=== PATIENT | male | born 1960 | race Two or more races ===

== ENCOUNTER 2017-02-27 21:59 | Inpatient (IN) | payer MEDICAID ==
[~2017-02-27] VITALS: Ht 162.6 cm; Wt 75.3 kg
[2017-02-27 22:14] VITALS: BP 128/49
[2017-02-27] MEDS ORDERED: Octreotide Acetate 500 MCG in Sodium Chloride 500ML 499 ML IV SCH (22:30)
[2017-02-27] MEDS ORDERED: Pantoprazole Inj IVP ONE (22:30)
--- NOTE | 2017-02-27 22:38 | Emergency Room Report ---
History of Present Illness General Chief Complaint: Alcohol Intoxication Source: Patient, Family Member Present Illness HPI 48-year-old male, chronic alcoholic, brought in for hematemesis. Patient admits to drinking daily. Has not seen a doctor for many years. states that patient had hematemesis, 3 episodes, with passage of bright red clots. denies hx of endoscopies or colonoscopies. hasnt seen a doctor for years. currently c/o nausea. states had black stools a week ago but now normal in color. no cp/sob. fever/chills/abd pain Allergies: Coded Allergies: No Known Allergies (Unverified , 02/27/17) Patient History Past Medical History: see triage record Past Surgical History: none Pertinent Family History: none Reviewed Nursing Documentation: PMH: Agreed, PSxH: Agreed Nursing Documentation-PMH Hx Hypertension: Yes Review of Systems All Other Systems: negative except mentioned in HPI Physical Exam Vital Signs Date Time Temp Pulse Resp B/P (MAP) Pulse Ox O2 Delivery O2 Flow Rate FiO2 02/27/17 21:51 115 16 119/70 99 Room Air 02/27/17 22:14 98.0 Sp02 EP Interpretation: reviewed, normal General Appearance: alert, GCS 15, non-toxic, severe distress, other - paleand jaundiced middle aged male Head: normocephalic, atraumatic Eyes: bilateral eye normal inspection, bilateral eye PERRL, bilateral eye EOMI ENT: normal ENT inspection, normal pharynx, normal voice, moist mucus membranes Neck: normal inspection, full range of motion, supple Respiratory: normal inspection, lungs clear, normal breath sounds, no respiratory distress, no retraction, no wheezing, speaking full sentences, chest symmetrical Cardiovascular #1: regular rate, rhythm, no edema, normal capillary refill, tachycardia Cardiovascular #2: 2+ radial (R), 2+ radial (L) Gastrointestinal: normal inspection, non tender, soft, non-distended, no guarding Musculoskeletal: normal inspection, back normal, normal range of motion, non- tender Neurologic: normal inspection, alert, oriented x3, responsive, motor strength/ tone normal, sensory intact, normal gait, speech normal Psychiatric: normal inspection, judgement/insight normal, memory normal Skin: no rash, warm/dry, normal turgor, pallor, jaundice Procedures Critical Care Time Critical Care Time 65 minutes of CC time 56-year-old male with hematemesis, history of alcohol abuse Intubated patient PLAN: IV access, labs, type and screen, GI consult, transfuse, intubated for airway protection Anticipate admission to ICU CC time also includes review of labs, review of EMR, discussion with family and paperwork from SNF, d/w hospitalist CC could include dosing of pressors, additional Abx CC time does not include procedures Intubation Intubation : Consent: Verbal Intubation Method: orotracheal Tube Size (cm): 7.5 Medications: Etomidate, Rocuronium Breath Sounds after Intubation: equal Intubation Complications: no complications Post Intubation Xray: Yes Attempts: One Patient Tolerated: Well Complications: None Medical Decision Making Diagnostic Impression: Primary Impression: Hemorrhagic shock Additional Impressions: Upper gastrointestinal bleeding Alcohol abuse Severe anemia Esophageal varices ER Course 48-year-old male, hematemesis, history of alcoholic abuse DDX: Esophageal varices, gastritis, gastric ulcer, AV malformation Plan: Obtain labs, ua, type and screen, transfuse, GI consult, anticipating admission to ICU ER course: Patient has remained tachycardic about 120, blood pressure map of 65 Patient feels very nauseous, Zofran given Extensive conversation held with the patient and his family members, they are aware of patient's critical status and possibility of hemorrhage from esophageal varices given patient's history Patient intubated for airway protection and anticipated clinical course Hemoglobin noted to be 3.9, patient transfused 2 units and 1 FFP in emergency room Protonix given, octreotide drip Founding Partner aware, Dr. Corral, who will be scoping patient in the morning Postintubation patient placed on fentanyl drip Remains tachycardic 140-150, hypertensive 182/98 versed drip started repeat hgb improved to 6.9, another unit prbc transfused d/w GI, patient scoped in ED 5 bands placed xferred to ICU: Disposition: Patient is to be admitted to ICU D/W hospitalist Dr Navarro Please note that this Emergency Department Report was dictated using [employer] inspector technology software, occasionally this can lead to erroneous entry secondary to interpretation by the dictation equipment. EKG Diagnostic Results EP Interpretation: Yes Rate: normal Rhythm: Tachycardic ST Segments: No acute changes ASA given to patient: No Rhythm Strip EP Interpretation: Yes Rate: 120 Rhythm: NSR, no PVCs, no ectopy Chest X-ray CXR: Ordered: Yes 1 view Indication: Chest pain EP interpretation: Yes Interpretation: No consolidation, no effusion, no PTX, no acute cardiopulmonary disease Impression: No acute disease Chest X-ray CXR: Ordered: Yes 1 view Indication: ET tube placement EP interpretation: Yes Interpretation: No consolidation, no effusion, no PTX, no acute cardiopulmonary disease, ET tube noted to be in appropriate position above the zoe Impression: No acute disease Electronically signed by Digna Johnson MD Electronically signed by Digna Johnson MD Laboratory Tests Test 02/27/17 22:25 White Blood Count 18.5 K/UL (4.8-10.8) H Red Blood Count 1.38 M/UL (4.70-6.10) L Hemoglobin 3.9 G/DL (14.2-18.0) *L Hematocrit 12.7 % (42.0-52.0) L Mean Corpuscular Volume 92 FL (80-99) Mean Corpuscular Hemoglobin 28.4 PG (27.0-31.0) Mean Corpuscular Hemoglobin Concent 30.9 G/DL (32.0-36.0) L Red Cell Distribution Width 16.4 % (11.6-14.8) H Platelet Count 80 K/UL (150-450) L Mean Platelet Volume 7.5 FL (6.5-10.1) Neutrophils (%) (Auto) % (45.0-75.0) Lymphocytes (%) (Auto) % (20.0-45.0) Monocytes (%) (Auto) % (1.0-10.0) Eosinophils (%) (Auto) % (0.0-3.0) Basophils (%) (Auto) % (0.0-2.0) Differential Total Cells Counted 100 Neutrophils % (Manual) 87 % (45-75) H Lymphocytes % (Manual) 4 % (20-45) L Monocytes % (Manual) 5 % (1-10) Eosinophils % (Manual) 0 % (0-3) Basophils % (Manual) 0 % (0-2) Band Neutrophils 4 % (0-8) Platelet Estimate Decreased L Platelet Morphology Normal Red Blood Cell Morphology Normal Prothrombin Time 17.0 SEC (9.30-11.50) H Prothrombin Time INR 1.6 (0.9-1.1) H PTT 31 SEC (23-33) Sodium Level 140 MMOL/L (136-145) Potassium Level 3.8 MMOL/L (3.5-5.1) Chloride Level 104 MMOL/L (98-107) Carbon Dioxide Level 24 MMOL/L (21-32) Anion Gap 12 mmol/L (5-15) Blood Urea Nitrogen 20 mg/dL (7-18) H Creatinine 1.0 MG/DL (0.55-1.30) Estimate Glomerular Filtration Rate > 60 mL/min (>60) Glucose Level 149 MG/DL (74-106) H Calcium Level 8.2 MG/DL (8.5-10.1) L Total Bilirubin 1.6 MG/DL (0.2-1.0) H Direct Bilirubin 0.8 MG/DL (0.0-0.3) H Aspartate Amino Transferase (AST) 249 U/L (15-37) H Alanine Aminotransferase (ALT) 132 U/L (12-78) H Alkaline Phosphatase 142 U/L (46-116) H Total Creatine Kinase 124 U/L (26-308) Creatine Kinase MB 1.1 NG/ML (0.0-3.6) Creatine Kinase MB Relative Index 0.8 Troponin I 0.023 ng/mL (0.000-0.056) Pro-B-Type Natriuretic Peptide 159 pg/mL (0-125) H Total Protein 6.3 G/DL (6.4-8.2) L Albumin 2.2 G/DL (3.4-5.0) L Globulin 4.1 g/dL Albumin/Globulin Ratio 0.5 (1.0-2.7) L Lipase 320 U/L (73-393) Serum Alcohol < 3 mg/dL Last Vital Signs Date Time Temp Pulse Resp B/P (MAP) Pulse Ox O2 Delivery O2 Flow Rate FiO2 02/27/17 22:14 98.0 115 16 128/49 100 Room Air Scripts No Active Prescriptions or Reported Meds Digna Johnson M.D. Feb 27, 2017 22:38
[2017-02-27 22:49] LABS: HEMATOCRIT 12.7 % (42.0-52.0); MEAN CORPUSCULAR VOLUME 92 FL (80-99); PLATELET COUNT 80 K/UL (150-450); RED BLOOD COUNT 1.38 M/UL (4.70-6.10); RED CELL DISTRIBUTION WIDTH 16.4 % (11.6-14.8); WHITE BLOOD COUNT 18.5 K/UL (4.8-10.8)
[2017-02-27 22:57] LABS: INR 1.6 (0.9-1.1)
[2017-02-27 23:01] LABS: ALANINE AMINOTRANSFERASE 132 U/L (12-78); ALBUMIN 2.2 G/DL (3.4-5.0); ALBUMIN/GLOBULIN RATIO 0.5 (1.0-2.7); ALKALINE PHOSPHATASE 142 U/L (46-116); ANION GAP 12 mmol/L (5-15); ASPARTATE AMINO TRANSFERASE 249 U/L (15-37); BILIRUBIN,TOTAL 1.6 MG/DL (0.2-1.0); BLOOD UREA NITROGEN 20 mg/dL (7-18); CALCIUM 8.2 MG/DL (8.5-10.1); CARBON DIOXIDE 24 MMOL/L (21-32); CHLORIDE 104 MMOL/L (98-107); POTASSIUM 3.8 MMOL/L (3.5-5.1); SODIUM 140 MMOL/L (136-145)
[2017-02-27 23:04] LABS: HEMOGLOBIN 3.9 G/DL (14.2-18.0)
[2017-02-27 23:20] LABS: BILIRUBIN,DIRECT 0.8 MG/DL (0.0-0.3); CKMB 1.1 NG/ML (0.0-3.6); CREATINE KINASE 124 U/L (26-308)
[2017-02-28] VITALS (26 sets, daily range): BP systolic 85–182; BP diastolic 43–98
[2017-02-28] MEDS ORDERED: Etomidate 40mg/20ml Inj IV ONE (01:15)
[2017-02-28] MEDS ORDERED: Zemuron 50mg/5ml Inj IV ONE (01:15)
[2017-02-28] MEDS ORDERED: Hydromorphone 0.5mg/0.5ml inj ONE (01:47)
[2017-02-28] MEDS ORDERED: Hydromorphone 0.5mg/0.5ml inj IVP ONE (02:00)
[2017-02-28] MEDS ORDERED: Midazolam for drip 50 MG in NS 90 ML IV ONE (02:00)
[2017-02-28] MEDS ORDERED: fentaNYL 100 mcg/2 mL IV ONE ×2 (02:12)
[2017-02-28] MEDS ORDERED: fentaNYL Citrate 1000 MCG in NS 100ml IV SCH (03:15)
[2017-02-28] MEDS ORDERED: Midazolam 2mg/2ml Inj IVP ONE ×2 (04:00→07:00)
[2017-02-28] MEDS ORDERED: Midazolam/D5W 100ml 100 ML IVPB ONE ×2 (04:02→04:30)
[2017-02-28] MEDS ORDERED: MIDAZOLAM FOR DRIP IV ONE ×2 (04:15→04:30)
[2017-02-28] MEDS ORDERED: DEXTROSE IV ONE ×2 (04:15→04:30)
[2017-02-28] MEDS ORDERED: LACTATED RINGER S IV ONE (04:15)
[2017-02-28 04:39] LABS: HEMATOCRIT 21.3 % (42.0-52.0); MEAN CORPUSCULAR VOLUME 92 FL (80-99); PLATELET COUNT 105 K/UL (150-450); RED BLOOD COUNT 2.33 M/UL (4.70-6.10); RED CELL DISTRIBUTION WIDTH 14.2 % (11.6-14.8)
[2017-02-28 04:47] LABS: HEMOGLOBIN 6.9 G/DL (14.2-18.0); WHITE BLOOD COUNT 24.2 K/UL (4.8-10.8)
[2017-02-28 04:51] LABS: ALANINE AMINOTRANSFERASE 145 U/L (12-78); ALBUMIN 2.5 G/DL (3.4-5.0); ALBUMIN/GLOBULIN RATIO 0.6 (1.0-2.7); ALKALINE PHOSPHATASE 148 U/L (46-116); ANION GAP 10 mmol/L (5-15); ASPARTATE AMINO TRANSFERASE 249 U/L (15-37); BILIRUBIN,TOTAL 2.6 MG/DL (0.2-1.0); BLOOD UREA NITROGEN 24 mg/dL (7-18); CALCIUM 8.1 MG/DL (8.5-10.1); CARBON DIOXIDE 27 MMOL/L (21-32); CHLORIDE 104 MMOL/L (98-107); CREATININE 1.2 MG/DL (0.55-1.30); SODIUM 141 MMOL/L (136-145)
[2017-02-28 05:00] LABS: BILIRUBIN,DIRECT 1.1 MG/DL (0.0-0.3)
[2017-02-28] MEDS ORDERED: cefTRIAXone 1 GM in D5W 55 ML IVPB ONE (05:15)
--- NOTE | 2017-02-28 06:21 | Anethesia Preoperative Eval ---
Anesthesia Pre-op PMH/ROS General Date of Evaluation: Feb 28, 2017 Time of Evaluation: 06:18 Anesthesiologist: ijeoma ASA Score: ASA 3 Mallampati Score Class I : Soft palate, uvula, fauces, pillars visible Class II: Soft palate, uvula, fauces visible Class III: Soft palate, base of uvula visible Class IV: Only hard plate visible Mallampati Classification: Class II Surgeon: malcolm Diagnosis: ugib Surgical Procedure: egd Anesthesia History: none Social History: alcohol use Family History: no anesthesia problems Allergies: Coded Allergies: No Known Allergies (Unverified , 02/27/17) Medications: see eMAR Past Medical History Cardiovascular: Reports: HTN Hematology/Immune: Reports: anemia Anesthesia Pre-op Phys. Exam Physician Exam Last Vital Signs Date Time Temp Pulse Resp B/P (MAP) Pulse Ox O2 Delivery O2 Flow Rate FiO2 02/28/17 05:25 109 17 40 02/28/17 04:30 98.8 133/72 100 Endotracheal Tube Constitutional: NAD Neurologic: CN 2-12 intact Cardiovascular: other - tachycardia Respiratory: other - intubated, fio2 0.4 Gastrointestinal: other - distended benign +bs Airway Exam Mallampati Score: Class II MO: limited - intubated Neck: supple TMD: orally intubated ROM: limited Anesthesia Pre-op A/P Labs Hematology Test 02/27/17 22:25 02/28/17 04:25 White Blood Count 18.5 K/UL (4.8-10.8) H 24.2 K/UL (4.8-10.8) *H Red Blood Count 1.38 M/UL (4.70-6.10) L 2.33 M/UL (4.70-6.10) L Hemoglobin 3.9 G/DL (14.2-18.0) *L 6.9 G/DL (14.2-18.0) Hematocrit 12.7 % (42.0-52.0) L 21.3 % (42.0-52.0) #L Mean Corpuscular Volume 92 FL (80-99) 92 FL (80-99) Mean Corpuscular Hemoglobin 28.4 PG (27.0-31.0) 29.6 PG (27.0-31.0) Mean Corpuscular Hemoglobin Concent 30.9 G/DL (32.0-36.0) L 32.3 G/DL (32.0-36.0) Red Cell Distribution Width 16.4 % (11.6-14.8) H 14.2 % (11.6-14.8) Platelet Count 80 K/UL (150-450) L 105 K/UL (150-450) L Mean Platelet Volume 7.5 FL (6.5-10.1) 7.3 FL (6.5-10.1) Neutrophils (%) (Auto) % (45.0-75.0) % (45.0-75.0) Lymphocytes (%) (Auto) % (20.0-45.0) % (20.0-45.0) Monocytes (%) (Auto) % (1.0-10.0) % (1.0-10.0) Eosinophils (%) (Auto) % (0.0-3.0) % (0.0-3.0) Basophils (%) (Auto) % (0.0-2.0) % (0.0-2.0) Differential Total Cells Counted 100 Neutrophils % (Manual) 87 % (45-75) H Pending Lymphocytes % (Manual) 4 % (20-45) L Pending Monocytes % (Manual) 5 % (1-10) Eosinophils % (Manual) 0 % (0-3) Basophils % (Manual) 0 % (0-2) Band Neutrophils 4 % (0-8) Platelet Estimate Decreased L Pending Platelet Morphology Normal Pending Red Blood Cell Morphology Normal Coagulation Test 02/27/17 22:25 Prothrombin Time 17.0 SEC (9.30-11.50) H Prothromb Time International Ratio 1.6 (0.9-1.1) H Activated Partial Thromboplast Time 31 SEC (23-33) Chemistry Test 02/27/17 22:25 02/28/17 04:25 Sodium Level 140 MMOL/L (136-145) 141 MMOL/L (136-145) Potassium Level 3.8 MMOL/L (3.5-5.1) 4.0 MMOL/L (3.5-5.1) Chloride Level 104 MMOL/L (98-107) 104 MMOL/L (98-107) Carbon Dioxide Level 24 MMOL/L (21-32) 27 MMOL/L (21-32) Anion Gap 12 mmol/L (5-15) 10 mmol/L (5-15) Blood Urea Nitrogen 20 mg/dL (7-18) H 24 mg/dL (7-18) H Creatinine 1.0 MG/DL (0.55-1.30) 1.2 MG/DL (0.55-1.30) Estimat Glomerular Filtration Rate > 60 mL/min (>60) > 60 mL/min (>60) Glucose Level 149 MG/DL (74-106) H 208 MG/DL (74-106) H Calcium Level 8.2 MG/DL (8.5-10.1) L 8.1 MG/DL (8.5-10.1) L Total Bilirubin 1.6 MG/DL (0.2-1.0) H 2.6 MG/DL (0.2-1.0) H Direct Bilirubin 0.8 MG/DL (0.0-0.3) H 1.1 MG/DL (0.0-0.3) H Aspartate Amino Transf (AST/SGOT) 249 U/L (15-37) H 249 U/L (15-37) H Alanine Aminotransferase (ALT/SGPT) 132 U/L (12-78) H 145 U/L (12-78) H Alkaline Phosphatase 142 U/L (46-116) H 148 U/L (46-116) H Total Creatine Kinase 124 U/L (26-308) Creatine Kinase MB 1.1 NG/ML (0.0-3.6) Creatine Kinase MB Relative Index 0.8 Troponin I 0.023 ng/mL (0.000-0.056) Pro-B-Type Natriuretic Peptide 159 pg/mL (0-125) H Total Protein 6.3 G/DL (6.4-8.2) L 6.7 G/DL (6.4-8.2) Albumin 2.2 G/DL (3.4-5.0) L 2.5 G/DL (3.4-5.0) L Globulin 4.1 g/dL 4.2 g/dL Albumin/Globulin Ratio 0.5 (1.0-2.7) L 0.6 (1.0-2.7) L Lipase 320 U/L (73-393) Studies Pre-op Studies: EKG - sinus tacycardia Risk Assessment & Plan Assessment: asa3 Plan: mac Status Change Before Surgery: No Pre-Antibiotics Drug: na MARILYN WALLS Feb 28, 2017 06:21
[2017-02-28] MEDS ORDERED: Ketamine HCl 100mg syr IV ONE (06:45)
--- NOTE | 2017-02-28 07:39 | Pre-Procedure Note/Attestation ---
Pre-Procedure Note/Attestation Complete Prior to Procedure Planned Procedure: not applicable Procedure Narrative: EGD with possible biopsy, polypectomy, hemostasis and banding Indications for Procedure Pre-Operative Diagnosis: UGIB Attestation I attest that I discussed the nature of the procedure; its benefits; risks and complications; and alternatives (and the risks and benefits of such alternatives ), prior to the procedure, with the patient (or the patient's legal order entry representative). I attest that, if there was a reasonable possibility of needing a blood transfusion, the patient (or the patient's legal order entry representative) was given the [facility] standardized written summary, pursuant to the Darwin Darius Blood Safety Act ([place] Health and Safety Code # 1645, as amended). I attest that I re-evaluated the patient just prior to the surgery and that there has been no change in the patient's H&P, except as documented below: MITCHELL GUERRA Feb 28, 2017 07:39
--- NOTE | 2017-02-28 07:39 | Pre-Procedure Note/Attestation ---
Pre-Procedure Note/Attestation Complete Prior to Procedure Planned Procedure: not applicable Procedure Narrative: EGD with possible biopsy, polypectomy, hemostasis and banding Indications for Procedure Pre-Operative Diagnosis: UGIB Attestation I attest that I discussed the nature of the procedure; its benefits; risks and complications; and alternatives (and the risks and benefits of such alternatives ), prior to the procedure, with the patient (or the patient's legal lifeline representatives). I attest that, if there was a reasonable possibility of needing a blood transfusion, the patient (or the patient's legal lifeline representatives) was given the [facility] standardized written summary, pursuant to the Darwin Darius Blood Safety Act ([place] Health and Safety Code # 1645, as amended). I attest that I re-evaluated the patient just prior to the surgery and that there has been no change in the patient's H&P, except as documented below: MITCHELL GUERRA Feb 28, 2017 07:39
--- NOTE | 2017-02-28 07:39 | Pre-Procedure Note/Attestation ---
Pre-Procedure Note/Attestation Complete Prior to Procedure Planned Procedure: not applicable Procedure Narrative: EGD with possible biopsy, polypectomy, hemostasis and banding Indications for Procedure Pre-Operative Diagnosis: UGIB Attestation I attest that I discussed the nature of the procedure; its benefits; risks and complications; and alternatives (and the risks and benefits of such alternatives ), prior to the procedure, with the patient (or the patient's legal senior sales representative). I attest that, if there was a reasonable possibility of needing a blood transfusion, the patient (or the patient's legal senior sales representative) was given the [facility] standardized written summary, pursuant to the Darwin Darius Blood Safety Act ([place] Health and Safety Code # 1645, as amended). I attest that I re-evaluated the patient just prior to the surgery and that there has been no change in the patient's H&P, except as documented below: MITCHELL GUERRA Feb 28, 2017 07:39
--- NOTE | 2017-02-28 07:42 | General Progress Note ---
Assessment/Plan Assessment/Plan Assessment - EtOH abuse - EtOH cirrhosis - EtOH hepatitis - UGIB - Coagulopathy - AMS/agitation Recommendation - NPO - IVF - PPI - Sandostatin - serial CBC - transfuse - EGD Post Procedure - Moderate to severe esophageal varicies --> banded x 5 - Keep NPO. No NGT. Subjective Allergies: Coded Allergies: No Known Allergies (Unverified , 02/27/17) Objective Last 24 Hour Vital Signs Date Time Temp Pulse Resp B/P (MAP) Pulse Ox O2 Delivery O2 Flow Rate FiO2 02/28/17 07:09 115 28 40 02/28/17 06:30 98.2 107 14 93/60 100 Endotracheal Tube 40 02/28/17 05:30 106 17 96/56 100 Endotracheal Tube 40 02/28/17 05:25 109 17 40 02/28/17 05:00 40 02/28/17 04:35 28 02/28/17 04:31 22 02/28/17 04:31 22 02/28/17 04:30 98.8 126 24 133/72 100 Endotracheal Tube 50 02/28/17 04:25 22 02/28/17 04:20 24 02/28/17 04:15 25 02/28/17 04:10 24 02/28/17 04:05 26 02/28/17 04:00 24 02/28/17 03:50 24 02/28/17 03:45 24 02/28/17 03:40 26 02/28/17 03:35 24 02/28/17 03:30 100.6 148 23 169/98 100 Endotracheal Tube 50 02/28/17 03:30 24 02/28/17 03:25 23 02/28/17 03:19 28 02/28/17 03:15 144 23 50 02/28/17 02:30 99.9 154 22 182/98 100 Endotracheal Tube 50 02/28/17 02:26 99.9 156 22 02/28/17 01:42 132 20 50 02/28/17 01:41 132 20 Mechanical Ventilator 50 02/28/17 01:24 50 02/28/17 01:22 133 21 143/73 95 Room Air 02/28/17 00:25 99.2 118 25 02/28/17 00:22 98.5 121 26 117/50 100 Room Air 02/28/17 00:10 98.5 121 26 02/27/17 22:14 98.0 115 16 128/49 100 Room Air 02/27/17 21:51 115 16 119/70 99 Room Air Laboratory Tests 02/27/17 22:25: White Blood Count 18.5H, Red Blood Count 1.38L, Hemoglobin 3.9*L, Hematocrit 12.7L, Mean Corpuscular Volume 92, Mean Corpuscular Hemoglobin 28.4, Mean Corpuscular Hemoglobin Concent 30.9L, Red Cell Distribution Width 16.4H, Platelet Count 80L, Mean Platelet Volume 7.5, Neutrophils (%) (Auto) , Lymphocytes (%) (Auto) , Monocytes (%) (Auto) , Eosinophils (%) (Auto) , Basophils (%) (Auto) , Differential Total Cells Counted 100, Neutrophils % ( Manual) 87H, Lymphocytes % (Manual) 4L, Monocytes % (Manual) 5, Eosinophils % ( Manual) 0, Basophils % (Manual) 0, Band Neutrophils 4, Platelet Estimate DecreasedL, Platelet Morphology Normal, Red Blood Cell Morphology Normal, Prothrombin Time 17.0H, Prothromb Time International Ratio 1.6H, Activated Partial Thromboplast Time 31, Sodium Level 140, Potassium Level 3.8, Chloride Level 104, Carbon Dioxide Level 24, Anion Gap 12, Blood Urea Nitrogen 20H, Creatinine 1.0, Estimat Glomerular Filtration Rate > 60, Glucose Level 149H, Calcium Level 8.2L, Total Bilirubin 1.6H, Direct Bilirubin 0.8H, Aspartate Amino Transf (AST/SGOT) 249H, Alanine Aminotransferase (ALT/SGPT) 132H, Alkaline Phosphatase 142H, Total Creatine Kinase 124, Creatine Kinase MB 1.1, Creatine Kinase MB Relative Index 0.8, Troponin I 0.023, Pro-B-Type Natriuretic Peptide 159H, Total Protein 6.3L, Albumin 2.2L, Globulin 4.1, Albumin/Globulin Ratio 0.5L, Lipase 320, Serum Alcohol < 3 02/28/17 03:18: Arterial Blood pH 7.351, Arterial Blood Partial Pressure CO2 46.0H, Arterial Blood Partial Pressure O2 154.5H, Arterial Blood HCO3 24.9, Arterial Blood Oxygen Saturation 98.6H, Arterial Blood Base Excess -0.7, Thanh Test Positive 02/28/17 04:25: White Blood Count 24.2*H, Red Blood Count 2.33L, Hemoglobin 6.9#*L, Hematocrit 21.3#L, Mean Corpuscular Volume 92, Mean Corpuscular Hemoglobin 29.6, Mean Corpuscular Hemoglobin Concent 32.3, Red Cell Distribution Width 14.2, Platelet Count 105L, Mean Platelet Volume 7.3, Neutrophils (%) (Auto) , Lymphocytes (%) ( Auto) , Monocytes (%) (Auto) , Eosinophils (%) (Auto) , Basophils (%) (Auto) , Neutrophils % (Manual) [Pending], Lymphocytes % (Manual) [Pending], Platelet Estimate [Pending], Platelet Morphology [Pending], Sodium Level 141, Potassium Level 4.0, Chloride Level 104, Carbon Dioxide Level 27, Anion Gap 10, Blood Urea Nitrogen 24H, Creatinine 1.2, Estimat Glomerular Filtration Rate > 60, Glucose Level 208H, Calcium Level 8.1L, Total Bilirubin 2.6H, Direct Bilirubin 1.1H, Aspartate Amino Transf (AST/SGOT) 249H, Alanine Aminotransferase (ALT/SGPT ) 145H, Alkaline Phosphatase 148H, Total Protein 6.7, Albumin 2.5L, Globulin 4.2 , Albumin/Globulin Ratio 0.6L Height (Feet): 5 Height (Inches): 4.00 Weight (Pounds): 155 MITCHELL GUERRA Feb 28, 2017 07:42
--- NOTE | 2017-02-28 07:44 | Endoscopy Procedure Note ---
Endoscopy Procedure Note Indication for Procedure: UGIB Operative Findings/Diagnosis: Esophageal varicies - banded Specimen: none Pt Tolerated Procedure Well: Yes Estimated Blood Loss: minimal Anesthesiologist: Leonardo Anesthesia: MAC Medication Given: see anesthesia record Band Ligator: x5 Implant(s) used?: No 50 yrs or older w/o bx or poly: Not Applicable 10yrs. F/U not recommended: Not Applicable If not recommended, why?: MITCHELL GUERRA Feb 28, 2017 07:44
--- NOTE | 2017-02-28 07:46 | Brief Operative Note ---
Immediate Post Operative Note Operative Note Chief Complaint: UGIB Pre-op Diagnosis: UGIB Procedure: EGD/EBL Post-op Diagnosis: Esophageal varcies Surgeon: malcolm Anesthesiologist: Cliff Cohn Anesthesia: MAC Specimen: none Complications: none Condition: stable Fluids: see ER notes Estimated Blood Loss: minimal Drains: none Implant(s) used?: No MITCHELL GUERRA Feb 28, 2017 07:46
--- NOTE | 2017-02-28 07:57 | Immediate Post-Op Evaluation ---
Immediate Post-Op Evalulation Immediate Post-Op Evalulation Procedure: egd Date of Evaluation: Feb 28, 2017 Time of Evaluation: 07:55 Blood Products: pRBCs Estimated Blood Loss: negligible Blood Pressure Systolic: 92 Blood Pressure Diastolic: 64 Pulse Rate: 117 Respiratory Rate: 16 O2 Sat by Pulse Oximetry: 100 Pain Score (1-10): 0 Nausea: No Vomiting: No Patient Status: awake, reacts, ventilated Hydration Status: adequate Drug: MARILYN Bassett Feb 28, 2017 07:57
--- NOTE | 2017-02-28 08:00 | 48 Hour Post Anesthesia Eval ---
Post Anesthesia Evaluation Procedure: egd Date of Evaluation: Feb 28, 2017 Time of Evaluation: 08:44 Blood Pressure Systolic: 90 0: 63 Pulse Rate: 111 Respiratory Rate: 16 Temperature (Fahrenheit): 99.3 O2 Sat by Pulse Oximetry: 100 Airway: patent Nausea: No Vomiting: No Pain Intensity: 0 Hydration Status: adequate Cardiopulmonary Status: stable, sinus tachycardia with occ pvc Mental Status/LOC: patient returned to baseline Post-Anesthesia Complications: none Follow-up care needed: N/A MARILYN WALLS Feb 28, 2017 08:00
[2017-02-28] MEDS ORDERED: LORazepam Inj 2mg/ml 1ml IV PRN (09:00)
[2017-02-28] MEDS: Pantoprazole Inj IVP SCH ×2 (10:16→20:49)
--- NOTE | 2017-02-28 10:18 | Diagnostic Imaging Report ---
Indication: PAIN Technique: One view of the chest Comparison: none Findings: The heart is upper limits normal in size. Lungs and pleural spaces are clear. There is mild degenerative thoracic spondylosis Impression: No acute process This agrees with the preliminary interpretation provided by the emergency room physician
--- NOTE | 2017-02-28 10:36 | Diagnostic Imaging Report ---
Indication: Post intubation Technique: One view of the chest Comparison: 02/27/2017 Findings: Patient is rotated to the left. Interim endotracheal intubation, endotracheal tube tip projecting approximately 6 cm above the zoe. The heart is borderline enlarged. There is perihilar interstitial prominence and central bronchial wall thickening, but no definite acute infiltrates, effusions, or congestion. Impression: Satisfactory endotracheal intubation No definite acute process This agrees with the preliminary interpretation provided by the emergency room physician
[2017-02-28] MEDS: Octreotide Acetate 500 MCG in Sodium Chloride 500ML 499 ML IV SCH ×2 (10:38→20:49)
[2017-02-28 11:26] LABS: HEMATOCRIT 23.9 % (42.0-52.0); HEMOGLOBIN 7.9 G/DL (14.2-18.0); MEAN CORPUSCULAR VOLUME 91 FL (80-99); PLATELET COUNT 82 K/UL (150-450); RED BLOOD COUNT 2.62 M/UL (4.70-6.10); RED CELL DISTRIBUTION WIDTH 13.1 % (11.6-14.8); WHITE BLOOD COUNT 21.6 K/UL (4.8-10.8)
[2017-02-28 11:52] LABS: ALANINE AMINOTRANSFERASE 132 U/L (12-78); ALBUMIN 2.3 G/DL (3.4-5.0); ALBUMIN/GLOBULIN RATIO 0.6 (1.0-2.7); ALKALINE PHOSPHATASE 133 U/L (46-116); ANION GAP 8 mmol/L (5-15); ASPARTATE AMINO TRANSFERASE 210 U/L (15-37); BILIRUBIN,TOTAL 2.5 MG/DL (0.2-1.0); BLOOD UREA NITROGEN 25 mg/dL (7-18); CARBON DIOXIDE 28 MMOL/L (21-32); CHLORIDE 106 MMOL/L (98-107); CREATININE 1.1 MG/DL (0.55-1.30); POTASSIUM 3.9 MMOL/L (3.5-5.1); SODIUM 142 MMOL/L (136-145)
[2017-02-28 12:06] LABS: BILIRUBIN,DIRECT 1.2 MG/DL (0.0-0.3)
[2017-02-28] MEDS: Morphine Sulfate 4mg/ml Inj IV PRN ×2 (15:48→22:04)
--- NOTE | 2017-02-28 21:30 | History and Physical Report ---
DATE OF ADMISSION: 02/28/2017 HISTORY OF PRESENT ILLNESS: This is a middle-aged male, who was brought to the hospital last night by his complaining that the patient has been having hematemesis. The patient was seen and worked up in the emergency room. He was found to have significant upper GI bleed. He was intubated. He subsequently also underwent upper GI endoscopy by Dr. Corral, which showed that he had esophageal varices, these were banded. The patient is now seen in the ICU. It was also noted that he had significant anemia and he has been transfused also in the process. PAST MEDICAL HISTORY: Otherwise unremarkable. There is a history of alcohol use and liver cirrhosis. PAST SURGICAL HISTORY: None known. HOME MEDICATIONS: None known. ALLERGIES: None known. SOCIAL HISTORY: Lives at home with family. PHYSICAL EXAMINATION: GENERAL: Reveals a 56-year-old male. At this time, he is intubated. VITAL SIGNS: Blood pressure is 90/60, heart rate 105, respirations are 22, temperature 99.1 degrees Fahrenheit. HEENT: Unremarkable. CHEST: Decreased breath sounds bilaterally. ABDOMEN: Soft. EXTREMITIES: There is no appreciable edema. LABORATORY DATA: Lab testing shows white count 72208, hemoglobin after transfusion 6.9, platelet counts are decreased to 105,000. Chemistries notable for a bilirubin of 2.6. AST and ALT elevated. Albumin is 2.5. Creatinine 1.2. ABG, pH 7.35, pCO2 46, pO2 154. Coags, INR 1.6. Alcohol level less than 3. IMPRESSION: 1. Upper gastrointestinal bleed. 2. Esophageal varices. 3. Liver cirrhosis. 4. Alcohol abuse. 5. Hypoalbuminemia. 6. Malnutrition. 7. Thrombocytopenia. 8. Transaminitis. 9. Anemia. 10. Leukocytosis. 11. Respiratory failure. 12. Hypotension. DISCUSSION: Admitted to ICU. The patient is critically ill. He will need to be started on Protonix infusion versus IV pushes. He may also benefit from octreotide. We will defer to Gastroenterology. Empiric antibiotics will be started as well. IV fluids will to be given. The patient may require further transfusions. At this time, he is a Full Code. SCDs. We will follow carefully. Discussed with Dr. Darian Mina in the ER. Rene Frausto M.D. DR: Susanna JOB#: [id number] CC:
[2017-02-28 21:49] LABS: HEMATOCRIT 21.3 % (42.0-52.0); HEMOGLOBIN 7.2 G/DL (14.2-18.0); MEAN CORPUSCULAR VOLUME 91 FL (80-99); PLATELET COUNT 70 K/UL (150-450); RED BLOOD COUNT 2.35 M/UL (4.70-6.10); RED CELL DISTRIBUTION WIDTH 13.8 % (11.6-14.8); WHITE BLOOD COUNT 16.4 K/UL (4.8-10.8)
[2017-02-28] MEDS: LORazepam Inj 2mg/ml 1ml IV PRN (22:34)
[2017-03-01] VITALS (24 sets, daily range): BP systolic 90–184; BP diastolic 43–81
[2017-03-01] MEDS: LORazepam Inj 2mg/ml 1ml IV PRN ×7 (00:53→23:03)
[2017-03-01] MEDS: Morphine Sulfate 4mg/ml Inj IV PRN ×3 (02:03→13:49)
[2017-03-01 05:12] LABS: INR 1.6 (0.9-1.1)
[2017-03-01 05:15] LABS: HEMATOCRIT 20.5 % (42.0-52.0); MEAN CORPUSCULAR VOLUME 91 FL (80-99); PLATELET COUNT 73 K/UL (150-450); RED BLOOD COUNT 2.27 M/UL (4.70-6.10); RED CELL DISTRIBUTION WIDTH 14.1 % (11.6-14.8); WHITE BLOOD COUNT 15.7 K/UL (4.8-10.8)
[2017-03-01 05:16] LABS: ALANINE AMINOTRANSFERASE 116 U/L (12-78); ALBUMIN/GLOBULIN RATIO 0.6 (1.0-2.7); ALKALINE PHOSPHATASE 109 U/L (46-116); AMMONIA 75 umol/L (11.2-31.7); ANION GAP 7 mmol/L (5-15); ASPARTATE AMINO TRANSFERASE 158 U/L (15-37); BILIRUBIN,TOTAL 2.1 MG/DL (0.2-1.0); BLOOD UREA NITROGEN 16 mg/dL (7-18); CALCIUM 7.4 MG/DL (8.5-10.1); CARBON DIOXIDE 27 MMOL/L (21-32); CHLORIDE 109 MMOL/L (98-107); CREATININE 0.8 MG/DL (0.55-1.30); POTASSIUM 3.7 MMOL/L (3.5-5.1); SODIUM 142 MMOL/L (136-145)
[2017-03-01 05:18] LABS: HEMOGLOBIN 6.8 G/DL (14.2-18.0)
[2017-03-01 05:41] LABS: BILIRUBIN,DIRECT 1.1 MG/DL (0.0-0.3)
[2017-03-01] MEDS: Octreotide Acetate 500 MCG in Sodium Chloride 500ML 499 ML IV SCH ×2 (06:05→16:33)
--- NOTE | 2017-03-01 08:46 | Pulmonology Progress Note ---
Assessment/Plan Assessment/Plan 1. Upper gastrointestinal bleed. 2. Esophageal varices. 3. Liver cirrhosis. 4. Alcohol abuse. 5. Hypoalbuminemia. 6. Malnutrition. 7. Thrombocytopenia. 8. Transaminitis. 9. Anemia. 10. Leukocytosis. 11. Respiratory failure. 12. Hypotension. 13. Encephalopathy/agitation DISCUSSION: The patient is critically ill. He is on octreotide/protonoix Further transfusions as necessary Empiric antibiotics IV fluids will to be given. Full Code. SCDs. Add lactulose enemas HAldol/ativan Begin weaning Subjective Interval Events: Being transfused; on vent; agitated Constitutional: Reports: no symptoms HEENT: Repors: no symptoms Respiratory: Reports: no symptoms Cardiovascular: Reports: no symptoms Gastrointestinal/Abdominal: Reports: no symptoms Allergies: Coded Allergies: No Known Allergies (Unverified , 02/27/17) Objective Last 24 Hour Vital Signs Date Time Temp Pulse Resp B/P (MAP) Pulse Ox O2 Delivery O2 Flow Rate FiO2 03/01/17 07:00 132 22 40 03/01/17 07:00 122 19 156/70 98 Mechanical Ventilator 40 03/01/17 06:00 100 19 102/48 98 Mechanical Ventilator 40 03/01/17 05:30 97.7 03/01/17 05:21 110 20 40 03/01/17 05:00 111 28 118/71 97 Mechanical Ventilator 40 03/01/17 04:00 91 03/01/17 04:00 40 03/01/17 04:00 97.7 91 28 91/49 100 Mechanical Ventilator 40 03/01/17 03:00 114 25 115/49 100 Mechanical Ventilator 40 03/01/17 02:55 114 30 40 03/01/17 02:00 106 14 100/51 98 Mechanical Ventilator 40 03/01/17 01:00 100 21 104/51 98 Mechanical Ventilator 40 03/01/17 00:32 94 18 40 03/01/17 00:00 40 03/01/17 00:00 97.7 97 24 93/43 100 Mechanical Ventilator 40 03/01/17 00:00 94 02/28/17 23:00 107 24 93/43 100 Mechanical Ventilator 40 02/28/17 22:48 125 22 40 02/28/17 22:00 145 21 120/53 96 Mechanical Ventilator 40 02/28/17 21:20 92 26 40 02/28/17 21:00 91 21 101/59 100 Mechanical Ventilator 40 02/28/17 20:00 95 02/28/17 20:00 40 02/28/17 20:00 97.7 90 22 90/53 100 Mechanical Ventilator 40 02/28/17 19:25 120 31 40 02/28/17 19:00 99 20 103/60 100 Mechanical Ventilator 40 02/28/17 18:00 100 21 90/58 100 Mechanical Ventilator 40 02/28/17 17:00 99 24 108/65 100 Mechanical Ventilator 40 02/28/17 16:42 92 19 40 02/28/17 16:00 50 02/28/17 16:00 94 02/28/17 16:00 98.7 98 22 96/67 100 Mechanical Ventilator 40 02/28/17 15:00 93 25 97/67 100 Mechanical Ventilator 40 02/28/17 14:59 91 19 40 02/28/17 14:00 92 20 95/66 100 Mechanical Ventilator 40 02/28/17 13:40 95 19 40 02/28/17 13:00 95 26 101/66 100 Mechanical Ventilator 40 02/28/17 12:00 104 02/28/17 12:00 50 02/28/17 12:00 98.9 101 21 92/61 98 Mechanical Ventilator 40 02/28/17 11:08 101 18 40 02/28/17 11:00 102 21 94/63 98 Mechanical Ventilator 40 02/28/17 10:00 102 21 90/65 98 Mechanical Ventilator 40 02/28/17 09:31 111 16 100 02/28/17 09:30 105 20 86/57 98 Mechanical Ventilator 40 02/28/17 09:00 50 02/28/17 09:00 107 21 90/60 100 Mechanical Ventilator 40 02/28/17 08:45 99.1 105 22 92/76 98 Mechanical Ventilator 40 02/28/17 08:45 105 General Appearance: no acute distress HEENT: normocephalic Respiratory/Chest: chest wall non-tender, lungs clear Cardiovascular: normal peripheral pulses, normal rate Abdomen: normal bowel sounds, soft, non tender Laboratory Tests 02/28/17 10:50: White Blood Count 21.6H, Red Blood Count 2.62L, Hemoglobin 7.9L, Hematocrit 23.9L, Mean Corpuscular Volume 91, Mean Corpuscular Hemoglobin 30.2, Mean Corpuscular Hemoglobin Concent 33.1, Red Cell Distribution Width 13.1, Platelet Count 82L, Mean Platelet Volume 9.7, Neutrophils (%) (Auto) , Lymphocytes (%) ( Auto) , Monocytes (%) (Auto) , Eosinophils (%) (Auto) , Basophils (%) (Auto) , Differential Total Cells Counted 100, Neutrophils % (Manual) 85H, Lymphocytes % (Manual) 7L, Monocytes % (Manual) 6, Eosinophils % (Manual) 1, Basophils % ( Manual) 1, Band Neutrophils 0, Platelet Estimate DecreasedL, Platelet Morphology Normal, Polychromasia 1+, Hypochromasia 1+, Sodium Level 142, Potassium Level 3.9, Chloride Level 106, Carbon Dioxide Level 28, Anion Gap 8, Blood Urea Nitrogen 25H, Creatinine 1.1, Estimat Glomerular Filtration Rate > 60 , Glucose Level 121H, Calcium Level 8.0L, Total Bilirubin 2.5H, Direct Bilirubin 1.2H, Aspartate Amino Transf (AST/SGOT) 210H, Alanine Aminotransferase (ALT/SGPT) 132H, Alkaline Phosphatase 133H, Total Protein 6.3L , Albumin 2.3L, Globulin 4.0, Albumin/Globulin Ratio 0.6L 02/28/17 21:25: White Blood Count 16.4H, Red Blood Count 2.35L, Hemoglobin 7.2L, Hematocrit 21.3L, Mean Corpuscular Volume 91, Mean Corpuscular Hemoglobin 30.5, Mean Corpuscular Hemoglobin Concent 33.7, Red Cell Distribution Width 13.8, Platelet Count 70L, Mean Platelet Volume 7.9, Neutrophils (%) (Auto) , Lymphocytes (%) ( Auto) , Monocytes (%) (Auto) , Eosinophils (%) (Auto) , Basophils (%) (Auto) , Differential Total Cells Counted 100, Neutrophils % (Manual) 81H, Lymphocytes % (Manual) 12L, Monocytes % (Manual) 5, Eosinophils % (Manual) 2, Basophils % ( Manual) 0, Band Neutrophils 0, Platelet Estimate DecreasedL, Platelet Morphology Normal, Hypochromasia 1+, Anisocytosis 1+ 03/01/17 03:37: White Blood Count 15.7H, Red Blood Count 2.27L, Hemoglobin 6.8*L, Hematocrit 20.5L, Mean Corpuscular Volume 91, Mean Corpuscular Hemoglobin 30.2, Mean Corpuscular Hemoglobin Concent 33.3, Red Cell Distribution Width 14.1, Platelet Count 73L, Mean Platelet Volume 7.9, Neutrophils (%) (Auto) , Lymphocytes (%) ( Auto) , Monocytes (%) (Auto) , Eosinophils (%) (Auto) , Basophils (%) (Auto) , Neutrophils % (Manual) [Pending], Lymphocytes % (Manual) [Pending], Platelet Estimate [Pending], Platelet Morphology [Pending], Sodium Level 142, Potassium Level 3.7, Chloride Level 109H, Carbon Dioxide Level 27, Anion Gap 7, Blood Urea Nitrogen 16, Creatinine 0.8, Estimat Glomerular Filtration Rate > 60, Glucose Level 116H, Calcium Level 7.4L, Total Bilirubin 2.1H, Direct Bilirubin 1.1H, Aspartate Amino Transf (AST/SGOT) 158H, Alanine Aminotransferase (ALT/SGPT ) 116H, Alkaline Phosphatase 109, Total Protein 5.5L, Albumin 2.0L, Globulin 3.5 , Albumin/Globulin Ratio 0.6L, Prothrombin Time 17.1H, Prothromb Time International Ratio 1.6H, Ammonia 75H Current Medications Medications (Trade) Dose Ordered Sig/Brittney Route PRN Reason Start Time Stop Time Status Last Admin Dose Admin Cefepime HCl 1 gm/ Dextrose 50 ml @ 100 mls/hr EVERY 12 HOURS IVPB 02/28/17 10:30 03/07/17 10:29 02/28/17 20:49 Lorazepam (Ativan 2mg/ml 1ml) 1 mg EVERY 2 HOURS PRN IV For Anxiety 02/28/17 22:22 03/07/17 08:59 03/01/17 08:42 Metronidazole 100 ml @ 100 mls/hr Q8HR IVPB 02/28/17 14:00 03/07/17 13:59 03/01/17 06:05 Morphine Sulfate (Morphine Sulfate) 4 mg Q2H PRN IV For Pain 02/28/17 09:00 03/07/17 08:59 03/01/17 04:56 Octreotide Acetate 500 mcg/ Sodium Chloride 500 ml @ 50 mls/hr Q10H IV 02/28/17 10:30 03/30/17 10:29 03/01/17 06:05 Pantoprazole (Protonix) 40 mg EVERY 12 HOURS IVP 02/28/17 09:45 03/30/17 09:44 02/28/17 20:49 Sodium Chloride 1,000 ml @ 100 mls/hr Q10H IV 02/28/17 09:45 03/30/17 09:44 03/01/17 06:05 Rene Frausto MD Mar 01, 2017 08:46
--- NOTE | 2017-03-01 09:26 | Diagnostic Imaging Report ---
Indication: SOB Technique: XRAY CHEST 1 V Comparison:02/28/2017 Findings: The heart remains enlarged. Endotracheal tube remains in place. There is pulmonary vascular redistribution. There is now some atelectasis in the right middle lobe. No pleural fluid. Poor inspiration. Impression: Poor inspiration. Cardiomegaly with evidence of mild congestive changes. Developing atelectasis in the right middle lobe.
[2017-03-01] MEDS: Haloperidol Lactate 5 MG in D5W 55 ML IVPB PRN ×2 (10:06→15:03)
[2017-03-01] MEDS: Pantoprazole Inj IVP SCH ×2 (10:06→21:09)
--- NOTE | 2017-03-01 14:46 | Cardiology Report ---
APPROVED REPORT EKG Measurement Heart [id number] [place] 130P46 [id number] Sinus tachycardia Cannot rule out Anterior infarct, age undetermined Abnormal ECG
--- NOTE | 2017-03-01 14:46 | Cardiology Report ---
APPROVED REPORT EKG Measurement Heart [id number] [place] 130P46 [id number] Sinus tachycardia Cannot rule out Anterior infarct, age undetermined Abnormal ECG
--- NOTE | 2017-03-01 14:46 | Cardiology Report ---
APPROVED REPORT EKG Measurement Heart [id number] [place] 130P46 [id number] Sinus tachycardia Cannot rule out Anterior infarct, age undetermined Abnormal ECG
--- NOTE | 2017-03-01 15:52 | General Progress Note ---
Assessment/Plan Assessment/Plan Assessment - EtOH abuse - EtOH cirrhosis - EtOH hepatitis - UGIB - Coagulopathy - AMS/agitation Recommendation - NPO - IVF - PPI - Thiamine - Sandostatin - wean down to 25 - serial CBC - transfuse PRN to kep Hg > 7 - abd ultrasound Subjective Allergies: Coded Allergies: No Known Allergies (Unverified , 02/27/17) Subjective Intubated family at bedside in ICU Objective Last 24 Hour Vital Signs Date Time Temp Pulse Resp B/P (MAP) Pulse Ox O2 Delivery O2 Flow Rate FiO2 03/01/17 15:00 136 29 40 03/01/17 13:00 132 31 40 03/01/17 12:08 40 03/01/17 12:00 100 26 90/44 99 Mechanical Ventilator 40 03/01/17 11:58 145 03/01/17 11:00 99 20 40 03/01/17 11:00 144 28 169/79 83 Mechanical Ventilator 40 03/01/17 10:16 40 03/01/17 10:00 120 26 99/51 98 Mechanical Ventilator 40 03/01/17 09:00 108 21 96/46 99 Mechanical Ventilator 40 03/01/17 09:00 99 03/01/17 09:00 102 19 40 03/01/17 08:00 40 03/01/17 08:00 98.8 114 21 96/45 100 Mechanical Ventilator 40 03/01/17 07:47 112 03/01/17 07:00 132 22 40 03/01/17 07:00 122 19 156/70 98 Mechanical Ventilator 40 03/01/17 06:00 100 19 102/48 98 Mechanical Ventilator 40 03/01/17 05:30 97.7 03/01/17 05:21 110 20 40 03/01/17 05:00 111 28 118/71 97 Mechanical Ventilator 40 03/01/17 04:00 91 03/01/17 04:00 40 03/01/17 04:00 97.7 91 28 91/49 100 Mechanical Ventilator 40 03/01/17 03:00 114 25 115/49 100 Mechanical Ventilator 40 03/01/17 02:55 114 30 40 03/01/17 02:00 106 14 100/51 98 Mechanical Ventilator 40 03/01/17 01:00 100 21 104/51 98 Mechanical Ventilator 40 03/01/17 00:32 94 18 40 03/01/17 00:00 40 03/01/17 00:00 97.7 97 24 93/43 100 Mechanical Ventilator 40 03/01/17 00:00 94 02/28/17 23:00 107 24 93/43 100 Mechanical Ventilator 40 02/28/17 22:48 125 22 40 02/28/17 22:00 145 21 120/53 96 Mechanical Ventilator 40 02/28/17 21:20 92 26 40 02/28/17 21:00 91 21 101/59 100 Mechanical Ventilator 40 02/28/17 20:00 95 02/28/17 20:00 40 02/28/17 20:00 97.7 90 22 90/53 100 Mechanical Ventilator 40 02/28/17 19:25 120 31 40 02/28/17 19:00 99 20 103/60 100 Mechanical Ventilator 40 02/28/17 18:00 100 21 90/58 100 Mechanical Ventilator 40 02/28/17 17:00 99 24 108/65 100 Mechanical Ventilator 40 02/28/17 16:42 92 19 40 02/28/17 16:00 50 02/28/17 16:00 94 02/28/17 16:00 98.7 98 22 96/67 100 Mechanical Ventilator 40 Intake and Output 03/01/17 03/02/17 19:00 07:00 Intake Total 770.0 ml Output Total 410 ml Balance 360.0 ml IV Total 520.0 ml Blood Product 250 ml Output Urine Total 410 ml Laboratory Tests 02/28/17 21:25: White Blood Count 16.4H, Red Blood Count 2.35L, Hemoglobin 7.2L, Hematocrit 21.3L, Mean Corpuscular Volume 91, Mean Corpuscular Hemoglobin 30.5, Mean Corpuscular Hemoglobin Concent 33.7, Red Cell Distribution Width 13.8, Platelet Count 70L, Mean Platelet Volume 7.9, Neutrophils (%) (Auto) , Lymphocytes (%) ( Auto) , Monocytes (%) (Auto) , Eosinophils (%) (Auto) , Basophils (%) (Auto) , Differential Total Cells Counted 100, Neutrophils % (Manual) 81H, Lymphocytes % (Manual) 12L, Monocytes % (Manual) 5, Eosinophils % (Manual) 2, Basophils % ( Manual) 0, Band Neutrophils 0, Platelet Estimate DecreasedL, Platelet Morphology Normal, Hypochromasia 1+, Anisocytosis 1+ 03/01/17 03:37: White Blood Count 15.7H, Red Blood Count 2.27L, Hemoglobin 6.8*L, Hematocrit 20.5L, Mean Corpuscular Volume 91, Mean Corpuscular Hemoglobin 30.2, Mean Corpuscular Hemoglobin Concent 33.3, Red Cell Distribution Width 14.1, Platelet Count 73L, Mean Platelet Volume 7.9, Neutrophils (%) (Auto) , Lymphocytes (%) ( Auto) , Monocytes (%) (Auto) , Eosinophils (%) (Auto) , Basophils (%) (Auto) , Differential Total Cells Counted 100, Neutrophils % (Manual) 80H, Lymphocytes % (Manual) 12L, Monocytes % (Manual) 4, Eosinophils % (Manual) 4H, Basophils % ( Manual) 0, Band Neutrophils 0, Platelet Estimate DecreasedL, Platelet Morphology Normal, Hypochromasia 1+, Anisocytosis 2+, Nucleated Red Blood Cells 1, Macrocytosis 1+, Tear Drop Cells 1+, Prothrombin Time 17.1H, Prothromb Time International Ratio 1.6H, Sodium Level 142, Potassium Level 3.7, Chloride Level 109H, Carbon Dioxide Level 27, Anion Gap 7, Blood Urea Nitrogen 16, Creatinine 0.8, Estimat Glomerular Filtration Rate > 60, Glucose Level 116H, Calcium Level 7.4L, Total Bilirubin 2.1H, Direct Bilirubin 1.1H, Aspartate Amino Transf (AST/ SGOT) 158H, Alanine Aminotransferase (ALT/SGPT) 116H, Alkaline Phosphatase 109, Ammonia 75H, Total Protein 5.5L, Albumin 2.0L, Globulin 3.5, Albumin/Globulin Ratio 0.6L 03/01/17 09:11: Arterial Blood pH 7.291L, Arterial Blood Partial Pressure CO2 54.1H, Arterial Blood Partial Pressure O2 75.9, Arterial Blood HCO3 25.5, Arterial Blood Oxygen Saturation 92.6, Arterial Blood Base Excess -1.3, Thanh Test N/a Height (Feet): 5 Height (Inches): 4.00 Weight (Pounds): 169 Objective man intubated and agitated NCAT supple CTA RRR abd less distended no edema delirium MITCHELL GUERRA Mar 01, 2017 15:52
[2017-03-01] MEDS ORDERED: Phytonadione 10 mg/mL 1ml amp SUBQ ONE (16:30)
[2017-03-01] MEDS ORDERED: Lactulose 200 GM in NS Irrig 1000ml 700 ML RECTAL SCH (17:00)
[2017-03-01] MEDS: Thiamine HCl 100 MG in D5W 55 ML IVPB SCH (17:46)
[2017-03-01] MEDS ORDERED: 1/2 NS 1000ml IV ONE ×2 (17:50→17:52)
[2017-03-01] MEDS ORDERED: Tubing IV Secondary IV ONE ×2 (17:50→17:52)
[2017-03-01] MEDS ORDERED: Tubing IV Blood Pump IV ONE (17:52)
[2017-03-02] VITALS (20 sets, daily range): BP systolic 96–150; BP diastolic 44–95
[2017-03-02] MEDS ORDERED: Lactulose 20gm/30ml UDC ONE ×2 (01:21→01:22)
[2017-03-02] MEDS: Haloperidol Lactate 5 MG in D5W 55 ML IVPB PRN ×3 (01:53→15:32)
[2017-03-02] MEDS: Lactulose 200 GM in NS Irrig 1000ml 700 ML RECTAL SCH ×2 (02:19→09:42)
[2017-03-02] MEDS: LORazepam Inj 2mg/ml 1ml IV PRN ×4 (03:53→17:57)
[2017-03-02 05:53] LABS: HEMOGLOBIN 7.7 G/DL (14.2-18.0); MEAN CORPUSCULAR VOLUME 92 FL (80-99); PLATELET COUNT 89 K/UL (150-450); WHITE BLOOD COUNT 17.5 K/UL (4.8-10.8)
[2017-03-02 06:05] LABS: INR 1.6 (0.9-1.1)
[2017-03-02 06:08] LABS: AMMONIA 62 umol/L (11.2-31.7)
[2017-03-02 06:09] LABS: ALANINE AMINOTRANSFERASE 108 U/L (12-78); ALBUMIN 2.1 G/DL (3.4-5.0); ALBUMIN/GLOBULIN RATIO 0.6 (1.0-2.7); ALKALINE PHOSPHATASE 113 U/L (46-116); ANION GAP 8 mmol/L (5-15); ASPARTATE AMINO TRANSFERASE 148 U/L (15-37); BILIRUBIN,TOTAL 2.4 MG/DL (0.2-1.0); BLOOD UREA NITROGEN 17 mg/dL (7-18); CALCIUM 7.7 MG/DL (8.5-10.1); CARBON DIOXIDE 25 MMOL/L (21-32); CHLORIDE 109 MMOL/L (98-107); CREATININE 0.8 MG/DL (0.55-1.30); POTASSIUM 3.6 MMOL/L (3.5-5.1); SODIUM 142 MMOL/L (136-145)
[2017-03-02 06:16] LABS: BILIRUBIN,DIRECT 1.7 MG/DL (0.0-0.3)
[2017-03-02] MEDS: Pantoprazole Inj IVP SCH (09:21)
--- NOTE | 2017-03-02 11:25 | Pulmonology Progress Note ---
Assessment/Plan Assessment/Plan 1. Upper gastrointestinal bleed. 2. Esophageal varices. 3. Liver cirrhosis. 4. Alcohol abuse. 5. Hypoalbuminemia. 6. Malnutrition. 7. Thrombocytopenia. 8. Transaminitis. 9. Anemia. 10. Leukocytosis. 11. Respiratory failure. 12. Hypotension. 13. Encephalopathy/agitation DISCUSSION: The patient is much improved. He is on octreotide/protonoix Further transfusions as necessary Empiric antibiotics IV fluids will to be given. Full Code. SCDs. Add lactulose enemas plus PO Haldol/ativan Extubated Subjective Interval Events: Extubated this AM; still npo; on octreotide Constitutional: Reports: no symptoms HEENT: Repors: no symptoms Respiratory: Reports: no symptoms Cardiovascular: Reports: no symptoms Gastrointestinal/Abdominal: Reports: no symptoms Genitourinary: Reports: no symptoms Neurologic: Reports: no symptoms Allergies: Coded Allergies: No Known Allergies (Unverified , 02/27/17) Objective Last 24 Hour Vital Signs Date Time Temp Pulse Resp B/P (MAP) Pulse Ox O2 Delivery O2 Flow Rate FiO2 03/02/17 10:15 Nasal Cannula 2.0 28 03/02/17 10:15 92 20 40 03/02/17 10:00 105 24 132/74 98 Mechanical Ventilator 40 03/02/17 09:00 108 22 108/56 100 Mechanical Ventilator 40 03/02/17 08:30 101 22 40 03/02/17 08:00 98.4 87 22 105/56 98 Mechanical Ventilator 40 03/02/17 08:00 40 03/02/17 08:00 112 03/02/17 07:30 102 19 40 03/02/17 06:32 85 20 60 03/02/17 06:00 104 25 116/55 100 Mechanical Ventilator 40 03/02/17 05:00 123 32 109/63 100 Mechanical Ventilator 40 03/02/17 04:58 126 39 60 03/02/17 04:00 98.6 86 18 96/46 99 Mechanical Ventilator 40 03/02/17 04:00 92 03/02/17 04:00 40 03/02/17 03:18 120 30 50 03/02/17 03:00 94 24 135/76 100 Mechanical Ventilator 40 03/02/17 02:00 90 18 109/44 98 Mechanical Ventilator 40 03/02/17 01:30 104 18 50 03/02/17 01:00 138 34 133/51 98 Mechanical Ventilator 40 03/02/17 00:00 40 03/02/17 00:00 98.2 127 27 123/73 100 Mechanical Ventilator 40 03/02/17 00:00 127 03/01/17 23:16 119 23 50 03/01/17 23:00 140 31 143/53 100 Mechanical Ventilator 40 03/01/17 22:00 93 20 121/49 100 Mechanical Ventilator 40 03/01/17 21:30 90 18 50 03/01/17 21:00 136 26 163/79 94 Mechanical Ventilator 40 03/01/17 20:00 137 03/01/17 20:00 40 03/01/17 20:00 98.8 137 28 149/74 95 Mechanical Ventilator 40 03/01/17 19:30 137 34 40 03/01/17 19:00 123 24 115/75 96 Mechanical Ventilator 40 03/01/17 18:00 142 19 184/61 93 Mechanical Ventilator 40 03/01/17 17:16 139 31 40 03/01/17 17:00 142 16 163/71 92 Mechanical Ventilator 40 03/01/17 16:00 138 17 164/81 99 Mechanical Ventilator 40 03/01/17 16:00 40 03/01/17 15:58 109 03/01/17 15:00 130 22 108/51 98 Mechanical Ventilator 40 03/01/17 15:00 136 29 40 03/01/17 14:00 140 29 157/73 93 Mechanical Ventilator 40 03/01/17 13:00 132 31 40 03/01/17 13:00 98.9 94 23 104/44 94 Mechanical Ventilator 40 03/01/17 12:08 40 03/01/17 12:00 100 26 90/44 99 Mechanical Ventilator 40 03/01/17 11:58 145 Intake and Output 03/02/17 03/03/17 19:00 07:00 Output Total 130 ml Balance -130 ml Output Urine Total 130 ml General Appearance: no acute distress HEENT: normocephalic Respiratory/Chest: chest wall non-tender, lungs clear Cardiovascular: normal peripheral pulses, normal rate Abdomen: normal bowel sounds Extremities: no cyanosis Neurologic/Psychiatric: disoriented Microbiology Date/Time Source Procedure Growth Status 02/28/17 07:00 Nasal Nares MRSA Culture - Final NO METHICILLIN RESISTANT STAPH AUREUS... Complete 02/28/17 07:00 Rectum VRE Culture - Final NO VANCOMYCIN RESISTANT ENTEROCOCCUS ... Complete Laboratory Tests 03/02/17 03:55: White Blood Count 17.5H, Red Blood Count 2.60L, Hemoglobin 7.7L, Hematocrit 24.0L, Mean Corpuscular Volume 92, Mean Corpuscular Hemoglobin 29.8, Mean Corpuscular Hemoglobin Concent 32.3, Red Cell Distribution Width 15.0H, Platelet Count 89L, Mean Platelet Volume 8.0, Neutrophils (%) (Auto) , Lymphocytes (%) (Auto) , Monocytes (%) (Auto) , Eosinophils (%) (Auto) , Basophils (%) (Auto) , Differential Total Cells Counted 100, Neutrophils % ( Manual) 88H, Lymphocytes % (Manual) 2L, Monocytes % (Manual) 8, Eosinophils % ( Manual) 0, Basophils % (Manual) 1, Band Neutrophils 1, Platelet Estimate DecreasedL, Platelet Morphology Normal, Polychromasia 1+, Hypochromasia 1+, Anisocytosis 1+, Prothrombin Time 16.9H, Prothromb Time International Ratio 1.6H , Sodium Level 142, Potassium Level 3.6, Chloride Level 109H, Carbon Dioxide Level 25, Anion Gap 8, Blood Urea Nitrogen 17, Creatinine 0.8, Estimat Glomerular Filtration Rate > 60, Glucose Level 113H, Calcium Level 7.7L, Total Bilirubin 2.4H, Direct Bilirubin 1.7H, Aspartate Amino Transf (AST/SGOT) 148H, Alanine Aminotransferase (ALT/SGPT) 108H, Alkaline Phosphatase 113, Ammonia 62H , Total Protein 5.8L, Albumin 2.1L, Globulin 3.7, Albumin/Globulin Ratio 0.6L 03/02/17 08:30: Arterial Blood pH 7.408, Arterial Blood Partial Pressure CO2 36.8, Arterial Blood Partial Pressure O2 139.4H, Arterial Blood HCO3 22.7, Arterial Blood Oxygen Saturation 98.5H, Arterial Blood Base Excess -1.7, Thanh Test Positive Current Medications Medications (Trade) Dose Ordered Sig/Brittney Route PRN Reason Start Time Stop Time Status Last Admin Dose Admin Cefepime HCl 1 gm/ Dextrose 50 ml @ 100 mls/hr EVERY 12 HOURS IVPB 02/28/17 10:30 03/07/17 10:29 03/02/17 09:25 Haloperidol Lactate 5 mg/ Dextrose 56 ml @ 224 mls/hr EVERY 4 HOURS PRN IVPB Agitation 03/01/17 09:00 03/31/17 08:59 03/02/17 01:53 Lactulose 200 gm/ Sodium Chloride 1,000 ml @ 0 mls/hr Q8HR@0200,1000,1800 RECTAL 03/02/17 02:00 04/01/17 01:59 03/02/17 09:42 Lorazepam (Ativan 2mg/ml 1ml) 1 mg EVERY 2 HOURS PRN IV For Anxiety 02/28/17 22:22 03/07/17 08:59 03/02/17 10:54 Metronidazole 100 ml @ 100 mls/hr Q12HR IVPB 03/01/17 21:00 03/08/17 20:59 03/02/17 09:22 Morphine Sulfate (Morphine Sulfate) 4 mg Q2H PRN IV For Pain 02/28/17 09:00 03/07/17 08:59 03/01/17 13:49 Octreotide Acetate 500 mcg/ Sodium Chloride 500 ml @ 25 mls/hr Q20H IV 03/01/17 16:30 03/31/17 16:29 03/01/17 16:33 Pantoprazole (Protonix) 40 mg EVERY 12 HOURS IVP 02/28/17 09:45 03/30/17 09:44 03/02/17 09:21 Sodium Chloride 1,000 ml @ 100 mls/hr Q10H IV 02/28/17 09:45 03/30/17 09:44 03/02/17 02:17 Thiamine HCl 100 mg/Dextrose 56 ml @ 112 mls/hr Q24H IVPB 03/01/17 17:30 03/31/17 17:29 03/01/17 17:46 Rene Frausto MD Mar 02, 2017 11:25
[2017-03-02] MEDS: Morphine Sulfate 4mg/ml Inj IV PRN (11:26)
[2017-03-02] MEDS: Octreotide Acetate 500 MCG in Sodium Chloride 500ML 499 ML IV SCH (12:49)
[2017-03-02] MEDS: Thiamine HCl 100 MG in D5W 55 ML IVPB SCH (17:58)
[2017-03-02] MEDS ORDERED: Lactulose 20gm/30ml UDC ORAL SCH (18:00)
--- NOTE | 2017-03-02 18:20 | General Progress Note ---
Assessment/Plan Assessment/Plan Assessment - EtOH abuse - EtOH cirrhosis - EtOH hepatitis - UGIB - Coagulopathy - AMS/agitation Recommendation - NPO - IVF - PPI - Thiamine - Sandostatin - d/c in am - Trental - serial CBC - transfuse PRN to kep Hg > 7 - abd ultrasound Subjective Allergies: Coded Allergies: No Known Allergies (Unverified , 02/27/17) Subjective extubated confused d/w staff training and development manager Objective Last 24 Hour Vital Signs Date Time Temp Pulse Resp B/P (MAP) Pulse Ox O2 Delivery O2 Flow Rate FiO2 03/02/17 17:00 88 20 126/49 100 Nasal Cannula 2.0 03/02/17 16:00 90 03/02/17 16:00 98.4 100 20 96/46 97 Nasal Cannula 2.0 03/02/17 15:00 100 22 121/52 98 Nasal Cannula 2.0 03/02/17 14:00 112 26 136/66 98 Nasal Cannula 2.0 03/02/17 13:00 110 26 130/74 98 Nasal Cannula 2.0 03/02/17 12:00 98.4 115 27 126/78 97 Nasal Cannula 2.0 03/02/17 12:00 117 03/02/17 12:00 2.0 03/02/17 11:00 110 27 142/50 98 Nasal Cannula 2.0 03/02/17 10:15 Nasal Cannula 2.0 28 03/02/17 10:15 92 20 40 03/02/17 10:00 100 22 150/74 98 Nasal Cannula 2.0 03/02/17 09:00 108 22 108/56 100 Mechanical Ventilator 40 03/02/17 08:30 101 22 40 03/02/17 08:00 98.4 87 22 105/56 98 Mechanical Ventilator 40 03/02/17 08:00 40 03/02/17 08:00 112 03/02/17 07:30 102 19 40 03/02/17 06:32 85 20 60 03/02/17 06:00 104 25 116/55 100 Mechanical Ventilator 40 03/02/17 05:00 123 32 109/63 100 Mechanical Ventilator 40 03/02/17 04:58 126 39 60 03/02/17 04:00 98.6 86 18 96/46 99 Mechanical Ventilator 40 03/02/17 04:00 92 03/02/17 04:00 40 03/02/17 03:18 120 30 50 03/02/17 03:00 94 24 135/76 100 Mechanical Ventilator 40 03/02/17 02:00 90 18 109/44 98 Mechanical Ventilator 40 03/02/17 01:30 104 18 50 03/02/17 01:00 138 34 133/51 98 Mechanical Ventilator 40 03/02/17 00:00 40 03/02/17 00:00 98.2 127 27 123/73 100 Mechanical Ventilator 40 03/02/17 00:00 127 03/01/17 23:16 119 23 50 03/01/17 23:00 140 31 143/53 100 Mechanical Ventilator 40 03/01/17 22:00 93 20 121/49 100 Mechanical Ventilator 40 03/01/17 21:30 90 18 50 03/01/17 21:00 136 26 163/79 94 Mechanical Ventilator 40 03/01/17 20:00 137 03/01/17 20:00 40 03/01/17 20:00 98.8 137 28 149/74 95 Mechanical Ventilator 40 03/01/17 19:30 137 34 40 03/01/17 19:00 123 24 115/75 96 Mechanical Ventilator 40 Intake and Output 03/02/17 03/03/17 19:00 07:00 Intake Total 706 ml Output Total 182 ml Balance 524 ml IV Total 706 ml Output Urine Total 182 ml # Bowel Movements 6 Laboratory Tests 03/02/17 03:55: White Blood Count 17.5H, Red Blood Count 2.60L, Hemoglobin 7.7L, Hematocrit 24.0L, Mean Corpuscular Volume 92, Mean Corpuscular Hemoglobin 29.8, Mean Corpuscular Hemoglobin Concent 32.3, Red Cell Distribution Width 15.0H, Platelet Count 89L, Mean Platelet Volume 8.0, Neutrophils (%) (Auto) , Lymphocytes (%) (Auto) , Monocytes (%) (Auto) , Eosinophils (%) (Auto) , Basophils (%) (Auto) , Differential Total Cells Counted 100, Neutrophils % ( Manual) 88H, Lymphocytes % (Manual) 2L, Monocytes % (Manual) 8, Eosinophils % ( Manual) 0, Basophils % (Manual) 1, Band Neutrophils 1, Platelet Estimate DecreasedL, Platelet Morphology Normal, Polychromasia 1+, Hypochromasia 1+, Anisocytosis 1+, Prothrombin Time 16.9H, Prothromb Time International Ratio 1.6H , Sodium Level 142, Potassium Level 3.6, Chloride Level 109H, Carbon Dioxide Level 25, Anion Gap 8, Blood Urea Nitrogen 17, Creatinine 0.8, Estimat Glomerular Filtration Rate > 60, Glucose Level 113H, Calcium Level 7.7L, Total Bilirubin 2.4H, Direct Bilirubin 1.7H, Aspartate Amino Transf (AST/SGOT) 148H, Alanine Aminotransferase (ALT/SGPT) 108H, Alkaline Phosphatase 113, Ammonia 62H , Total Protein 5.8L, Albumin 2.1L, Globulin 3.7, Albumin/Globulin Ratio 0.6L 03/02/17 08:30: Arterial Blood pH 7.408, Arterial Blood Partial Pressure CO2 36.8, Arterial Blood Partial Pressure O2 139.4H, Arterial Blood HCO3 22.7, Arterial Blood Oxygen Saturation 98.5H, Arterial Blood Base Excess -1.7, Thanh Test Positive Height (Feet): 5 Height (Inches): 4.00 Weight (Pounds): 166 Objective man agitated NCAT supple CTA RRR abd less distended no edema MITCHELL Schmidt Mar 02, 2017 18:20
[2017-03-02] MEDS ORDERED: 1/2 NS 1000ml IV ONE (19:52)
--- NOTE | 2017-03-03 08:40 | Discharge Summary ---
Discharge Summary Hospital Course Date of Admission Feb 28, 2017 at 00:20 Date of Discharge Mar 02, 2017 at 19:53 Admitting Diagnosis Gastrointestinal bleed HPI Roly Nair is a 56 year old male who was admitted on Feb 28, 2017 at 00: 20 for Gastrointestinal Bleed Hospital Course dc summary #[id number] Discharge Condition Upon Discharge: stable Discharge Disposition Patient was discharged to [facility] Discharge Diagnoses: Discharge Instructions Discharge Instructions Special Instructions I have been assigned to complete a D/C Summary on this account. I was not involved in the patient management Kiah Mcfadden NP (Vanchtein) Mar 03, 2017 08:40
--- NOTE | 2017-03-03 08:40 | Discharge Summary ---
Discharge Summary Hospital Course Date of Admission Feb 28, 2017 at 00:20 Date of Discharge Mar 02, 2017 at 19:53 Admitting Diagnosis Gastrointestinal bleed HPI Roly Nair is a 56 year old male who was admitted on Feb 28, 2017 at 00: 20 for Gastrointestinal Bleed Hospital Course dc summary #[id number] Discharge Condition Upon Discharge: stable Discharge Disposition Patient was discharged to [facility] [place] Discharge Diagnoses: Discharge Instructions Discharge Instructions Special Instructions I have been assigned to complete a D/C Summary on this account. I was not involved in the patient management Kiah Mcfadden NP (Vanchtein) Mar 03, 2017 08:40
--- NOTE | 2017-03-03 08:40 | Discharge Summary ---
Discharge Summary Hospital Course Date of Admission Feb 28, 2017 at 00:20 Date of Discharge Mar 02, 2017 at 19:53 Admitting Diagnosis Gastrointestinal bleed HPI Roly Nair is a 56 year old male who was admitted on Feb 28, 2017 at 00: 20 for Gastrointestinal Bleed Hospital Course dc summary #[id number] Discharge Condition Upon Discharge: stable Discharge Disposition Patient was discharged to [facility] Discharge Diagnoses: Discharge Instructions Discharge Instructions Special Instructions I have been assigned to complete a D/C Summary on this account. I was not involved in the patient management Kiah Mcfadden NP (Vanchtein) Mar 03, 2017 08:40
--- NOTE | 2017-03-03 08:45 | History and Physical Report ---
DATE OF ADMISSION: 02/28/2017 REASON FOR ADMISSION: GI bleed. HISTORY OF PRESENT ILLNESS: This is a 56-year-old chronic alcoholic, brought in for hematemesis. The patient underwent endoscopy with banding of esophageal varices. The patient admitted to drinking today. The patient required intubation due to frequent hematemesis. The patient's care discussed and reviewed with the GI physician and the ER physician. The patient now admitted for ongoing management. PAST MEDICAL HISTORY: Notable for liver disease, alcoholism, and hypertension. MEDICATIONS: Reviewed. ALLERGIES: Reviewed. REVIEW OF SYSTEMS: Unable, the patient is intubated at present. PHYSICAL EXAMINATION: GENERAL: A well-developed male, chronically ill appearing. VITAL SIGNS: Noted blood pressure 93/60, pulse 107, temperature 98.2, and respiratory rate is 14. HEENT: Otherwise negative. NECK: Supple. LUNGS: With moderate breath sounds coarse. CARDIAC: S1 and S2. Tachycardic. ABDOMEN: With poor bowel sounds. EXTREMITIES: No edema. LABORATORY DATA: Laboratory data reviewed. White count 18.5, hemoglobin 3.9, now is 6.9. Arterial blood gases noted, 7.35, 46, and 154. Chemistries with significantly elevated liver enzymes. BUN 24 and creatinine 1.2. Albumin 2.2. INR is 1.6. IMPRESSION: 1. Profound coagulopathy. 2. Elevated liver enzymes, likely alcoholic liver disease. 3. Gastrointestinal bleed. 4. Esophageal varices, status post banding. RECOMMENDATIONS: IV Protonix. GI followup. Octreotide as per GI. Ventilator management. Supportive care. Transfuse. Followup hemoglobin and hematocrit and monitor clinically for further change and intervention. Maintain in ICU. The patient is critical at present and will follow up for further changes. Jayjay Navarro M.D. DR: LYNN JOB#: [id number] CC: TEDDY
--- NOTE | 2017-03-03 08:45 | Consultation ---
DATE OF CONSULTATION: 02/28/2017 GASTROENTEROLOGY CONSULTATION REPORT CONSULTING PHYSICIAN: Marcy Corral M.D. CHIEF COMPLAINT: I was asked to see this patient by Dr. Navarro for evaluation of gastrointestinal bleeding. HISTORY OF PRESENT ILLNESS: The patient is a 56-year-old man, who was brought in due to acute upper gastrointestinal bleeding. At the time of my evaluation, the patient was already intubated and no information was available from him. Reportedly, he has lots and lots of hematemesis and in the emergency room, he was noted to be tachycardic and hypotensive. He was given fluids and packed red cells and fresh frozen plasma, and also he was sedated and intubated. His overall status by morning was stabilized. We talked to the patient's and daughter. The patient has been long-term alcoholic drinking 6 to 12 beers a day for the last 20 and 30 years. The patient has had no previous episodes of gastrointestinal bleeding and has had no previous endoscopies, although he has been admitted to alcohol rehabilitation in the past. PAST MEDICAL HISTORY: History of hypertension, on no medications. MEDICATIONS: Noted. FAMILY HISTORY: Noncontributory. SOCIAL HISTORY: The patient is . He has two children. He does not work. He does not smoke, but drinks as described above. REVIEW OF SYSTEMS: Unobtainable. PHYSICAL EXAMINATION: GENERAL: A well-developed man, he was confused, and intubated in the emergency room. HEENT: Normocephalic. The patient was intubated. NECK: Supple. CHEST: Clear to auscultation. CARDIOVASCULAR: Tachycardic heart rate. ABDOMEN: Mildly distended without any obvious organomegaly. EXTREMITIES: No edema. LABORATORY DATA: Laboratory data has been noted. ASSESSMENT: This patient presents with acute upper gastrointestinal bleeding, which is of significant concern due to his long-term alcoholism. The patient will also undergo emergency endoscopy. It was discussed with the patient. The patient appears to have some degree of alcoholic hepatitis and coagulopathy. He has some degree of confusion, but it is unclear whether this is from delirium or hepatic encephalopathy. His condition is critical and endoscopy with possible biopsy and polypectomy and hemostasis or banding were explained to the patient's and daughter and all questions were answered. Informed consent was obtained. RECOMMENDATIONS: 1. Keep the patient n.p.o. 2. IV fluids. 3. IV Sandostatin. 4. IV proton pump inhibitor. 5. Blood and blood products as needed through serial white blood counts. 6. Endoscopy later today. Thank you for asking me to participate in the care of this patient. Marcy Corral M.D. DR: RHONDA JOB#: [id number] CC: TEDDY
--- NOTE | 2017-03-03 08:45 | Procedure Note ---
DATE OF PROCEDURE: 02/28/2017 GASTROENTEROLOGY PROCEDURE REPORT SURGEON: Marcy Corral M.D. PROCEDURE: Upper gastrointestinal endoscopy with endoscopic band ligation of esophageal varices. ANESTHESIA: Please see the separate anesthesiologist notes for details. PRE-ENDOSCOPIC DIAGNOSIS: Upper gastrointestinal bleeding. POST-ENDOSCOPIC DIAGNOSIS: Five columns of esophageal varices, status post band placement on each one. DESCRIPTION OF PROCEDURE: The procedure, its risks, indications, alternatives, and possible complications were explained to the patient's family. An informed consent was obtained. The patient was then sedated. A diagnostic upper endoscope was introduced through the oropharynx and advanced to the duodenum. The endoscope was then gradually withdrawn and the mucosa was examined carefully. Examination of the upper gastrointestinal mucosa did not reveal any active bleeding. There was a small amount of blood clots in the stomach, which cannot be cleared due to thick nature of the clots. There did not appear to be any ulcers in his upper GI tract. In the lower esophagus, there are five columns of moderate degree of varices identifying. These are felt to be the source of bleeding . Five bands were placed sequentially one on each column with excellent results. The endoscope was removed. The patient was sent to recovery in good condition. COMPLICATIONS: None. RECOMMENDATIONS: 1. Continue with meds. 2. Continue Sandostatin. 3. Continue proton pump inhibitor. 4. Hold diet today. Marcy Corral M.D. DR: BRADLEY JOB#: [id number] CC: TEDDY
--- NOTE | 2017-03-03 14:39 | Diagnostic Imaging Report ---
Indication:Abdominal pain Technique: Grayscale and duplex Doppler imaging of the abdomen performed. Comparison: None Findings: Study was limited. The spleen is enlarged. Suggestion of portosystemic varices in the left upper quadrant. Spleen measurement is 16 cm. There is trace ascites. The liver is slightly heterogeneous and mildly enlarged. There is thickening of the gallbladder wall. Gallstones and sludge noted. The CBD measures 6 mm. Main portal vein is patent. Kidneys are unremarkable. Impression: Splenomegaly. Possible portosystemic varices in the left upper quadrant abdomen. Gallstone/sludge. Trace ascites. Limit evaluation
--- NOTE | 2017-03-04 08:15 | Discharge Summary 2 SIG ---
DATE OF ADMISSION: 02/28/2017 DATE OF DISCHARGE: 03/02/2017 REASON FOR ADMISSION: 56-year-old male with chronic alcohol abuse and dependency, presented to emergency department for upper GI bleeding. The patient admitted to daily drinking. He had not seen doctor for many years. According to , who accompanied the patient, he had three episodes of vomiting with passage of bright red clots. No history of endoscopy or colonoscopy. Patient also reported black stools a week ago, but currently normal in color. No chest pain. No shortness of breath. No fever, no chills. No abdominal pain. Workup in the emergency room revealed tachycardia and low blood pressure. Severe anemia, hemoglobin- 3.9, hematocrit -12.7, INR -1.6, platelets- 80, and WBC -18.5. The patient was intubated for airway protection. The patient was transfused with two units of packed red blood cells and one unit of fresh frozen plasma. Patient was started on Sandostatin and Protonix drip. Zofran was given for nausea. GI doctor was contacted, initially planned to scope the next day, hemoglobin repeated after blood transfuse still low- 6.9 , another unit of packed red blood cells was given. GI doctor seen the patient in the emergency department and performed an upper endoscopy. The patient was found to have esophageal varices, five band ligation were done. The patient was subsequently transferred to ICU for further management with diagnoses of hemorrhagic shock, GI bleeding, alcohol abuse, severe anemia, and esophageal varices. HOSPITAL STAY: The patient was admitted to ICU, initially NPO , on IV fluids. The patient was on Protonix and Sandostatin drips. GI specialist closely monitored. Serial CBC were done with goal to keep hemoglobin above 7. The patient had elevated LFT and bilirubin, which were closely monitored, remained without change. The patient was on empiric antibiotics for leukocytosis, however, no source of infection was found. WBC on the day of transfer -17.5, hemoglobin -7.7, hematocrit- 24, and platelets- 89. The patient was on SCD for DVT prophylaxis. The patient was started on thiamine. Elevated ammonia -75, subsequently started on lactulose enema. INR without change. Low albumin noted. Lipase within normal limits. Ventilator support and pulmonary toilet provided as needed. Patient was started on weaning protocol and was able to be extubated on 03/02/2017. At the same day patient was transferred to [facility] [place] for insurance purposes. While in the hospital, the patient undergone a total of 5 units of packed red blood cell transfusion and one unit of fresh frozen plasma. Abdominal ultrasound was pending, but was not done, since the patient was transferred to another facility. Prior to discharge, the patient was hemodynamically stable, on 2 liter oxygen via nasal cannula. Hemoglobin and hematocrit remained stable aids social worker met with the patient's family to discuss available resources. The patient and family were educated regarding available ways to be enrolled in alcoholic recovery program. FINAL DIAGNOSES: 1. Hemorrhagic shock. 2. Upper gastrointestinal bleeding. 3. Alcohol abuse. 4. Alcoholic cirrhosis. 5. Alcoholic hepatitis. 6. Coagulopathy. 7. Hypoalbuminemia. 8. Malnutrition. 9. Thrombocytopenia. 10. Anemia requiring blood transfusion. 11. Transaminitis. 12. Hypertension. 13. Hepatic encephalopathy. 14. Respiratory failure. DISCHARGE MEDICATIONS: List of medication was sent with the patient to accepting facility. DISCHARGE INSTRUCTIONS: The patient to follow up with medical doctor at the accepting facility. Rene Frausto M.D. I have been assigned to dictate discharge summary on this account and I was not involved in the patient's management. Kiah Jaimesrupinder NVioleta DR: MERISSA JOB#: [id number] CC: TEDDY
== END 2017-03-02 19:53 | disposition short-term general hospital (02) | DRG 280 ==
LOC: EDBD 21:59 → EMR 02-28 00:07 → ICU 02-28 00:20 → EDBEDREQ 02-28 00:21
PROC: 5A1945Z Respiratory Ventilation, 24-96 Consecutive Hours (ICD-10-PCS; 2017-02-28)
PROC: 30233K1 Transfusion of Nonautologous Frozen Plasma into Peripheral Vein, Percutaneous Approach (ICD-10-PCS; 2017-02-28)
PROC: 30233N1 Transfusion of Nonautologous Red Blood Cells into Peripheral Vein, Percutaneous Approach (ICD-10-PCS; 2017-02-28)
PROC: 0BH17EZ Insertion of Endotracheal Airway into Trachea, Via Natural or Artificial Opening (ICD-10-PCS; 2017-02-28)
PROC: 06L38CZ Occlusion of Esophageal Vein with Extraluminal Device, Via Natural or Artificial Opening Endoscopic (ICD-10-PCS; principal; 2017-02-28 07:12)
DX: K70.30 Alcoholic cirrhosis of liver without ascites (principal); K70.10 Alcoholic hepatitis without ascites; R57.8 Other shock; J96.90 Respiratory failure, unspecified, unspecified whether with hypoxia or hypercapnia; I85.11 Secondary esophageal varices with bleeding; K92.0 Hematemesis; E46 Unspecified protein-calorie malnutrition; K72.90 Hepatic failure, unspecified without coma; D62 Acute posthemorrhagic anemia; D64.9 Anemia, unspecified; D68.4 Acquired coagulation factor deficiency; F10.20 Alcohol dependence, uncomplicated; D69.6 Thrombocytopenia, unspecified; R74.0 Nonspecific elevation of levels of transaminase and lactic acid dehydrogenase [LDH]; I10 Essential (primary) hypertension
CPT/HCPCS: 36415; 36600; 71010; 76700; 80053; 80329; 82140; 82248; 82550; 82553; 82803; 82962; 83690; 83880; 84484; 85007; 85025; 85610; 85730; 86850; 86900; 86901; 86920; 86927; 87081; 93005; 94002; 94003; 94150; 94664; 99291; J2250; J2405